=== PATIENT | male | born 1955 | race Asian ===

== ENCOUNTER 2019-05-19 05:41 | Day surgery (SDC) | payer BC ==
[~2019-05-19] VITALS: Ht 152.4 cm; Wt 58.4 kg
[2019-05-19 06:42] VITALS: BP 134/83; PULSE 76; RESP 16
[2019-05-19] MEDS ORDERED: ATORVASTATIN (07:06)
[2019-05-19] MEDS ORDERED: JANUVIA (07:06)
[2019-05-19] MEDS ORDERED: LOSARTAN (07:06)
[2019-05-19] MEDS ORDERED: NEXIUM (07:06)
[2019-05-19] MEDS ORDERED: METFORMIN (07:06)
[2019-05-19] MEDS ORDERED: LIDOCAINE 100 MG SYRINGE ONE (07:49)
[2019-05-19] MEDS ORDERED: PROPOFOL 0 ML ONE (07:49)
[2019-05-19] MEDS ORDERED: FENTAnyl 50 MCG/ML VIAL ONE (08:16)
[2019-05-19] MEDS ORDERED: MIDAZOLAM 1 MG/ML 2 ML INJ ONE (08:16)
--- NOTE | 2019-05-19 21:02 | CONS ---
DATE OF ADMISSION: 05/19/2019 DATE OF CONSULTATION: PATIENT NAME: BASILIA WHITE TYPE OF CONSULTATION: Preoperative gastroenterology. Dear Dr. White: I thank you very much for this kind referral. HISTORY OF PRESENT ILLNESS: Mr. Karlo White is a 63-year-old male patient who has been referred to [facility] for further evaluation of upper abdominal pain, not completely responding to therapy with Nexium. The patient went to the emergency room and he had abdominal ultrasound and CT scan done and according to the patient's son, they were normal. No past history of peptic ulcer disease. Not on nonsteroid al anti-inflammatory agents. Appetite is somewhat poor, but no significant weight loss. No history of gallstones or liver disease. The patient denies any change in the bowel habit or rectal bleeding. He states he had a screening colonoscopy 2 years ago and no colon neoplasm was identified. He has hypertension and diabetes. No heart disease, lung problem or kidney disease. He has hyperlipidemia. SOCIAL HISTORY: Nonsmoker. No alcohol abuse. FAMILY HISTORY: No family history of gastrointestinal tract neoplasm. ALLERGIES: NO DRUG ALLERGIES. MEDICATIONS: 1. Nexium 24 hours p.o. q.a.m. 2. Januvia. 3. Metformin. 4. Losartan. 5. Atorvastatin. PHYSICAL EXAMINATION: VITAL SIGNS: He is 5 feet tall and weighs 125 pounds. HEART: Normal heart sounds. LUNGS: Clear. ABDOMEN: Soft, no masses. Normal bowel sounds. NEUROLOGIC: Normal neurological exam. IMPRESSION: 1. Upper abdominal pain, not completely responding to therapy with Nexium. 2. The patient went to the emergency room and according to the patient's son, he had abdominal ultra sound and CT scan done and they were normal. 3. He states he had a colonoscopy 2 years ago and no colon neoplasm was identified. 4. Hypertension. 5. Diabetes mellitus. 6. Hyperlipidemia. PLAN: 1. Continue Nexium. 2. Endoscopic examination for further evaluation. The procedure and possible complications are well explained to the patient. He understands and conse nts to the procedure. I thank you once again. With warmest personal regards, Dictated By: SHEILA BEAN/KELLI Conf#: [id number] DID#: [id number]
== END 2019-05-19 11:59 | disposition home or self-care (01) ==
LOC: GIL 05:41
PROVIDERS: ATTEND Internal Medicine Gastroenterology
DX: K44.9 Diaphragmatic hernia without obstruction or gangrene (principal); K20.9 Esophagitis, unspecified; K29.60 Other gastritis without bleeding; E11.9 Type 2 diabetes mellitus without complications; E78.5 Hyperlipidemia, unspecified; I10 Essential (primary) hypertension; Z79.84 Long term (current) use of oral hypoglycemic drugs
CPT/HCPCS: 43239; 82962; 88305; J2250; J3010; Z7610; J2001